=== PATIENT | female | born 1980 | race Caucasian/White ===

== ENCOUNTER 2024-01-20 18:06 | Emergency (ER) | payer OTHER, SELFPAY ==
[2024-01-20 18:08] VITALS: BP 135/98
[2024-01-20 18:27] LABS: Urine Albumin Trace (Neg - Trace); Urine Bilirubin 1+ (Negative); Urine Character Clear (Clear); Urine Color Yellow; Urine Glucose Negative (Negative); Urine Ketone 3+ (Negative); Urine Leukocyte Trace (Negative); Urine Nitrite Negative (Negative); Urine Occult Blood 4+ (Negative); Urine Urobilinogen 1+ (Neg - 1+); Urine pH 6.5 (5.0-9.0)
[2024-01-20 18:33] LABS: Urine Red Blood Cell >100 /HPF (0-2); Urine Squamous Cell 21-25 /LPF (Few); Urine White Cell 0-2 /HPF (0-5)
[2024-01-20 18:45] VITALS: BMI 29.7
[2024-01-20 19:00] VITALS: BP 164/91
--- NOTE | 2024-01-20 19:25 | ED.GENMED ---
History of Present Illness
General
Chief Complaint: Abdominal Pain
Source: patient
Exam Limitations: none
Time Seen by Provider: 01/20/24 19:15
Travel History
Have you had any contact with someone who has COVID-19?: No
Do you have any symptoms of coronavirus? Fever > 100 degrees, chills, cough, shortness of breath, sore throat, loss of taste or smell, muscle aches, or headache?: No
History of Present Illness
History of Present Illness:
43-year-old female started with left lower quadrant/flank pain this afternoon. Initially mild now more severe. Cannot get comfortable. And agitated like pain. Some nausea and vomiting. No dysuria or frequency no fever. No preceding pain
management
Past History
Past History
ED Past Medical History: Asthma
ED Past Surgical History: Cholecystectomy and Other (Gastric bypass)
Social History
Tobacco: Non-smoker
Alcohol: None
Drug: None
Personal:
Living: with family
Review of Systems
Review of Systems
All Other Systems: Not applicable
Constitutional: Denies fever
: Denies dysuria, urgency or discharge
Phy Exam
Physical Exam
Physical Exam:
GENERAL: Alert and oriented. Nontoxic but appears uncomfortable
EYE: Orbits normal.
NECK: Supple
CARDIAC: Regular rate and rhythm without any obvious murmurs.
LUNGS: Clear breath sounds,normal
ABDOMEN: Soft, vague mid left minimal abdominal tenderness. No rebound or guarding no mass or hernia. No CVA tenderness
NEUROLOGICAL: Alert and oriented , grossly non-focal
SKIN: Warm and dry, no rash or lesion, no discoloration, skin intact.
MUSCULOSKELETAL: No edema,no deformity.Good color
PSYCH: Normal and appropriate interaction.
Course
Orders/Labs/Results
Orders:
Orders
01/20/24 18:21
Urine Culture Reflexed from UA [Urinalysis Reflex To Culture] Urgent
Date Specimen was Collected: 01/20/24
Time Specimen was Collected: 18:12
Urine Microscopic Reflex Cult Urgent
01/20/24 18:51
Complete Blood Count/With Diff Urgent
Comprehensive Metabolic Panel Urgent
HCG, Serum Qualitative Screen Urgent
Comment: ADD ON
Lactic Acid Urgent
Lipase Urgent
Comment: ADD ON
01/20/24 19:17
Add On- LAB Urgent
Tests Added?: qual bhcg serum
01/20/24 19:20
Add On- LAB Urgent
Tests Added?: lipase
01/20/24 19:24
0.9% Sodium Chloride 1000 ml [Nss] 1,000 ml IV BOLUS
Ketorolac [Toradol] 15 mg IV NOW STA
Ondansetron Injectable [Zofran] 4 mg IV NOW STA
01/20/24 19:25
CT Abd/pel Without Iv Or Oral Urgent
Comment:
Reason For Exam: Left flank pain
01/20/24 21:37
CR Abdomen - 1 View Urgent
Comment:
Reason For Exam: 7 mm prox stone left
01/20/24 22:11
Hydrocodone 5/APAP 325 [[place] 5/325] 1 tablet .ROUTE .STK-MED ONE
01/20/24 22:16
Hydrocodone 5/APAP 325 [[place] 5/325] 1 tablet PO NOW STA
Abnormal Lab Results
01/20/24 01/20/24
18:21 18:51
Abs Immat Gran (auto) 0.1 H 10^3/uL
(0-0.05)
Absolute Neuts (auto) 8.4 H 10^3/uL
(1.4-6.5)
Neutrophils % 81.3 H %
(42.2-75.2)
Lymphocytes % 11.8 L %
(20.5-51.1)
Sodium 131 L mmol/L
(135-145)
Carbon Dioxide 19 L mmol/L
(22-30)
Glucose 112 H mg/dl
(70-99)
Lactic Acid 2.4 H mmol/L
(0.7-2.0)
Urine Ketones 3+ A
(Negative)
Ur Occult Blood Reflex 4+ A
(Negative)
Urine Bilirubin 1+ A
(Negative)
Leukocyte Esterase Rfl Trace A
(Negative)
Urine RBC >100 A /HPF
(0-2)
01/20/24 18:51
01/20/24 18:51
Vital Signs
Initial and Last Documented VS:
Initial Vital Signs
Temp Pulse Resp BP Pulse Ox
97.8 F 89 20 135/98 95
01/20/24 18:08 01/20/24 18:08 01/20/24 18:08 01/20/24 18:08 01/20/24 18:08
Last Documented Vital Signs
Temp Pulse Resp BP Pulse Ox
97.8 F 90 20 147/80 97
01/20/24 18:08 01/20/24 20:30 01/20/24 20:30 01/20/24 22:00 01/20/24 22:00
MDM/Problems Addressed
Differential Diagnosis Includes:
Workup in progress. Relatively sudden onset of left flank pain. Behaving like a kidney stone. Not currently on her menses. This was last week and regular. Urinalysis with hematuria. Pain management and CT scan
*Radiology
Radiology exam reviewed: radiology read reviewed (7 mm proximal left ureteral stone with hydronephrosis)
*Pulse Oximetry
Patient hypoxic: no
*Critical Care Note
Total Time (30-74mins, 75-104mins- exclusive of procedures): Not Applicable
Update Note
Update Note:
Patient very comfortable after Toradol. No symptoms consistent with infectious issue. No fever or chills. No white count. Urinalysis unremarkable. Patient comfortable with outpatient management and follow-up. Discussed with urology. Flomax
KUB and pain management.
ED Attending Note
-
Portions of this chart may have been created with voice recognition software.� Occasional wrong word or��sound alike� substitutions may have occurred due to the inherent limitations of voice recognition software.
Discharge Plan
Departure
Patient Disposition: Home (Routine Discharge)
Date of Disposition: 01/20/24
Time of Disposition: 22:04
Patient with high blood pressure during this ER visit?: Yes
Discharge Problem:
Obstructing left ureteral kidney stone
Instructions: Kidney Stones (DC), BLOOD PRESSURE
Prescriptions:
New
tamsulosin [Flomax] 0.4 mg capsule
0.4 mg PO DAILY Qty: 14 0RF
hydrocodone-acetaminophen 5-325 mg tablet
1 tab PO Q4H PRN (Reason: Pain) Qty: 14 0RF
No Action
duloxetine [Cymbalta] 30 mg Capsule,Delayed Release(Dr/Ec)
60 mg PO HS
ferrous sulfate [FeroSul] 325 mg (65 mg iron) tablet
325 mg PO DAILY
Referrals:
Nicole Tapia PA-C [Family Provider] -
Milton Sotelo MD [Active] - Follow up in 2-3 days
Activity Restrictions/Additional Instructions:
Tylenol for milder pain. [place] for increased pain. Do not take both.
Call the urologist Tuesday for close follow-up
Return immediately with any infectious symptoms I discussed or unremitting pain
Interventions
Interventions:
*Risk Screen - Suicide Last Done: 01/20/24 18:08
*General Assessment Last Done: 01/20/24 18:08
*Neglect/Abuse Screening Last Done: 01/20/24 18:44
ED- Fall Risk Assessment Last Done: 01/20/24 18:45
*ED COVID-19 Vaccine History Last Done: 01/20/24 18:44
*Nursing Disposition Last Done: 01/20/24 22:21
YT-Xdhluu-Lmhnpoyjar Assessment Last Done: 01/20/24 18:44
Discharge Date and Time
Discharge Date/Time: 01/20/24 22:22
[2024-01-20] MEDS: NSS 1000 IV (19:45)
[2024-01-20] MEDS: TORADOL 15 MG IV (19:45)
[2024-01-20] MEDS: ZOFRAN 4 MG IV (19:46)
[2024-01-20 20:00] VITALS: BP 153/87
[2024-01-20 20:12] LABS: % Basophils 0.7 % (0-2); % Eosinophils 0.3 % (0-6); % Immature Granulocytes 0.5 % (0-0.5); % Lymphocytes 11.8 % (20.5-51.1); % Monocytes 5.4 % (1.7-9.3); % Neutrophils 81.3 % (42.2-75.2); Absolute Basophils 0.1 10^3/uL (0-0.2); Absolute Immature Granulocytes 0.1 10^3/uL (0-0.05); Absolute Lymphocytes 1.2 10^3/uL (1.2-3.4); Absolute Monocytes 0.6 10^3/uL (0.1-0.6); Absolute Neutrophils 8.4 10^3/uL (1.4-6.5); Hematocrit 37.5 % (37.0-47.0); Hemoglobin 12.7 g/dL (12.0-16.0); Mean Corp Hgb Conc. 33.9 g/dL (33.0-37.0); Mean Corpuscular Hgb 28.7 pg (27.0-31.0); Mean Corpuscular Volume 84.7 fL (81.0-99.0); Mean Platelet Volume 8.7 fL (7.4-10.4); Nucleated Red Blood Cells % 0 %; Platelet Count 286 10^3/uL (130-400); Red Blood Cell Count 4.43 10^6/uL (4.20-5.40); Red Cell Dist. Width 13.2 % (11.5-14.5); White Blood Cell Count 10.3 10^3/uL (4.8-10.8)
[2024-01-20 20:25] LABS: ALT (SGPT) 19 U/L (0-35); AST (SGOT) 26 U/L (14-36); Albumin 4.1 g/dl (3.5-5.0); Alkaline Phosphatase 81 U/L (38-126); Blood Urea Nitrogen 10 mg/dl (7-17); Calcium 8.7 mg/dl (8.4-10.2); Carbon Dioxide 19 mmol/L (22-30); Chloride 104 mmol/L (98-107); Estimated Creatinine Clearance 117 ml/min; Glucose 112 mg/dl (70-99); Lactic Acid 2.4 mmol/L (0.7-2.0); Lipase 119 U/L (23-300); Potassium 3.8 mmol/L (3.5-5.1); Sodium 131 mmol/L (135-145); Total Bilirubin 0.6 mg/dl (0.2-1.3); Total Protein 7.4 g/dl (6.3-8.2); eGFR > 60.00
[2024-01-20 20:30] LABS: HCG, Serum Qualitative Screen Negative
[2024-01-20 22:00] VITALS: BP 147/80
[2024-01-20] MEDS: NORCO 5/325 1 TABLET PO (22:17)
== END 2024-01-20 22:22 | disposition home or self-care (01) ==
LOC: EMR 18:06
PROVIDERS: Emergency Medicine; EMERGENCY PHYSICIAN Emergency Medicine; FAMILY PHYSICIAN Physician Assistant Medical
DX: N13.2 Hydronephrosis with renal and ureteral calculous obstruction (principal); R03.0 Elevated blood-pressure reading, without diagnosis of hypertension
CPT/HCPCS: 99284; 96374; 96375; 96361; 74018; 74176; 80053; 81003; 81015; 83605; 83690; 84703; 85025

== ENCOUNTER 2024-01-26 06:19 | Day surgery (SDC) | payer OTHER, SELFPAY ==
[2024-01-26] VITALS (8 sets, daily range): BP systolic 127–147; BP diastolic 75–86; BMI 28.2
[2024-01-26 10:49] LABS: HCG, Urine Qualitative Screen Negative
[2024-01-26] MEDS: NORMOSOL-R 1000 IV (10:53)
[2024-01-26] MEDS: Pyridium 200 MG PO (10:53)
--- NOTE | 2024-01-26 13:04 | SUR.PHASEI ---
Report to [facility] for Lunch relief. Wilian Marion RN BSN.
[2024-01-30 17:41] LABS: Stone Analysis Mass 22 mg
== END 2024-01-26 14:20 | disposition home or self-care (01) ==
LOC: SDS 06:19
PROVIDERS: ATTENDING PHYSICIAN Specialist
DX: N13.2 Hydronephrosis with renal and ureteral calculous obstruction (principal)
CPT/HCPCS: 52356; 74018; 76000; 81025; 82365; C1894; C2617